=== PATIENT | male | born 1965 | race Caucasian/White ===

== ENCOUNTER → 2018-09-09 | Outpatient (CLI) | payer OTHER ==
[~2018-09-09] MED LIST: IOPAMIDOL (ISOVUE 370) 100 ML BTL IV ONE
== END ==
LOC: FIMAGING 13:18
PROVIDERS: ATTEND Internal Medicine Interventional Cardiology
DX: K65.2 Spontaneous bacterial peritonitis (principal)
CPT/HCPCS: Q9967